=== PATIENT | female | born 1940 | race Caucasian/White ===

== ENCOUNTER 2016-10-27 15:16 | Inpatient (IN) | payer MEDICARE, OTHER ==
--- NOTE | 2016-10-23 11:58 | MH ---
cc: JUAN CARLOSCHERIESULEMAN DATE OF ADMISSION: 11/08/2016 ADMITTING DIAGNOSIS Osteoarthritis of the left knee, varus deformity left knee, pain left knee. HISTORY OF PRESENT ILLNESS The patient is a 76-year-old white female who has experienced pain in her left knee of greater than nine months duration. She had noted the onset of her symptoms as related to routine yard work activity without any actual injury occurring directly to the knee. She was experiencing an aching sensation that tended to wax and wane in nature without significant swelling being associated, but noting an occasional grinding-like discomfort. She had been taking Aleve for pain management and later presented to the undersigned physician in March of this past year at which time x-ray studies of her left knee demonstrated obvious degenerative changes with [id number] apposition about the medial compartment associated with a varus deformity of at least 10 degrees magnitude. Findings and treatment options were reviewed with the patient at that time. She was treated with an intraarticular steroid injection and followed on an outpatient basis thereafter. She continued to experience pain about the knee that did interfere with her daily routine and was feeling that she was approaching a point in time where she may need to consider a more definitive course of treatment. When seen in follow-up disposition in June of this past year per patient request she did receive a repeat steroid injection to her knee for additional pain management. Unfortunately, she was unable to appreciate any long-term benefit and returned to the office more recently expressing her desire to proceed with a more definitive course of treatment. Current x-ray studies revealed severe degenerative changes with [id number] apposition throughout the medial compartment associated with a varus deformity of almost 15 degrees magnitude. The involvement of total knee arthroplasty was outlined in detail for which emphasis was made regarding the fact that the decision to proceed with surgery would be left entirely to the patient's discretion. She readily admitted that she felt she had reached that point in time where she was ready to consider such treatment and in compliance with her wishes she is currently being admitted in order that the above be accomplished. PAST MEDICAL HISTORY Her past medical history, hospitalizations and surgeries have included: 1. Acromioplasty of the right shoulder with mini open rotator cuff repair. 2. Partial thyroidectomy. 3. Tonsillectomy. 4. Arthroscopic surgery of the knees bilaterally. 5. Tubal ligation. 6. Correction of a deviated nasal septum. 7. Upper endoscopy and colonoscopy. Her medical illnesses include: 1. Elevated cholesterol. 2. Hypothyroidism. 3. Acid reflux. MEDICATIONS Current medications: 1. Lipitor 10 mg daily. 2. Synthroid 75 mcg daily. 3. Prevacid 15 mg p.r.n. 4. Multivitamin tablet daily. ALLERGIES The patient denies any known drug allergies. REVIEW OF SYSTEMS She does wear glasses. Reports a history of migraine headaches and dizziness. Diminished auditory acuity for which hearing aids are utilized, primarily on the left side. No tinnitus. No bleeding gums or dysphagia. Occasional sinus congestion. No epistaxis. No history of pneumonia or tuberculosis. No angina or heart disease. Appetite is good. Bowel movements regular. No hepatitis, gallbladder disease, ulcers or hemorrhoids. There is a history of a hiatal hernia. No urinary tract infection. History of kidney stones with spontaneous passage. No fractures. No psychiatric illness. Her remaining review of systems is unremarkable and noncontributory. FAMILY HISTORY The patient has been at least 34 years. Her is 78 years of age, indicated to be in good health. Three daughters and one son indicated to be in good health. One daughter has a history of ocular cancer for which she did undergo enucleation treatment. Family history is otherwise unremarkable for diabetes, hypertension, heart disease, liver disease or kidney disease. SOCIAL HISTORY The patient completed a high school education. She denies active use of tobacco and ethanol. PHYSICAL EXAMINATION Height 5 feet 3 inches, weight 172 pounds. GENERAL: An alert, oriented and responsive 76-year-old white female sitting quietly upon the examination table with no apparent distress. HEAD, EYES, EARS, NOSE, AND THROAT: Pupils are equal, round and reactive to light. Extraocular movements full. Sclera clear. External nares clear. External auditory canals clear. Dental intact. Mucous membranes pink and moist. Pharynx clear. NECK: Supple. There is slight limitation in mobility at the extreme of motion indicated to be chronic in nature. Carotid pulse bilaterally. Trachea midline. Thyroid without enlargement. LUNGS: Clear to auscultation and percussion. No CVA tenderness. No discomfort throughout the dorsolumbar spine. HEART: Regular rhythm. No murmur or gallop. ABDOMEN: Soft, nontender. Bowel sounds present. PELVIC: Per primary care physician. EXTREMITIES: Left Knee: No swelling or effusion. Apprehension and compression sign are negative. There is no appreciable collateral ligamentous instability. Zero to 105 degree range of motion with discomfort at the extreme of mobility and associated crepitation being present. No collateral ligamentous laxity. Rosalba test and drawer sign negative. Pivot shift and Autumn sign positive for medial compartment pain. Straight-leg raising unremarkable at 80 degrees. Mild antalgic gait. NEUROLOGIC: Cranial nerves II through XII grossly intact excluding diminished auditory acuity on the left side. IMPRESSION Primary osteoarthritis of the left knee, varus deformity left knee, pain left knee. PLAN Left total knee arthroplasty. The nature of the planned surgical procedure, the potential complications and risks associated, the expectations of surgery and the consent form were thoroughly reviewed with the patient prior to her admission to the hospital. Josselyn has indicated her full understanding regarding all of the above and given consent to proceed with treatment as outlined. Medical evaluation and clearance for surgery will be completed by her primary care physician, Dr. Alla Prasad. Suleman Dugan MD NBS/BT /11:26 AM /11:42 AM
[~2016-10-27] VITALS: Ht 160 cm; Wt 71.8 kg
[2016-10-31] MEDS ORDERED: PREV30CA11 PO (13:13)
[2016-10-31] MEDS ORDERED: MULT1TAB84 PO (13:13)
[2016-10-31] MEDS ORDERED: LEVO.075 PO (13:13)
[2016-10-31] MEDS ORDERED: ATOR10TA15 PO (13:13)
[2016-11-08 00:13] VITALS: BP 156/89; PULSE 104; RESP 19; TEMP 98.2; O2SAT 98
[2016-11-08] MEDS: CHLORHEXIDINE GLUCONATE 4% SOLN 120 ML BTL TOP SCH (05:45)
[2016-11-08] MEDS ORDERED: LACTATED RINGER'S 1000 ML IV SCH (05:45)
[2016-11-08] MEDS ORDERED: SODIUM CHLORID 0.9% 500 ML IV SCH (05:45)
[2016-11-08] MEDS ORDERED: METOPROLOL TARTRATE 25 MG TAB PO PRN (05:45)
[2016-11-08] MEDS ORDERED: ceFAZolin 2 GM PREMIX 50 ML IV SCH (05:45)
[2016-11-08] MEDS ORDERED: INSULIN HUMAN REGULAR 1,000 UNITS/10 ML VIAL SQ PRN (05:45)
[2016-11-08] MEDS ORDERED: TRANEXAMIC ACID 1 GM PRIOR TO PROCEDURE IV SCH ×2 (05:45)
[2016-11-08] MEDS: POVIDONE IODINE 7.5% SCRUB 118 ML BOTTLE TOP SCH (05:45)
[2016-11-08 06:08] VITALS: BP 126/69; PULSE 78; RESP 16; TEMP 98.2; O2SAT 98
[2016-11-08 06:34] VITALS: PULSE 91
[2016-11-08] MEDS ORDERED: FAMOTIDINE 20 MG/2 ML VIAL ONE (06:40)
[2016-11-08] MEDS ORDERED: MIDAZOLAM HCL 5 MG/5 ML VIAL ONE (06:40)
[2016-11-08] MEDS ORDERED: ceFAZolin INJ 1,000 MG VIAL ONE (07:01)
[2016-11-08] MEDS ORDERED: TRANEXAMIC ACID 1 GM POST-OP IV SCH ×2 (09:00)
[2016-11-08] MEDS ORDERED: PROMETHAZINE INJ 25 MG/ML VIAL IM PRN (09:45)
[2016-11-08] MEDS ORDERED: fentaNYL CITRATE 250 MCG/5 ML AMP ONE (09:45)
[2016-11-08] MEDS ORDERED: HYDROmorphone HCL PF 1 MG/ML VIAL IV PRN (09:45)
[2016-11-08] MEDS ORDERED: MISCELLANEOUS PHARMACY INFORMATION XX ONE (09:45)
[2016-11-08] MEDS ORDERED: SODIUM CHLORIDE 0.9% FLUSH 5 ML FLUSH IVF PRN (09:45)
[2016-11-08] MEDS ORDERED: diphenhydrAMINE HCL 25 MG CAP PO PRN (09:45)
[2016-11-08] MEDS ORDERED: Post-op Orders (for Pharmacy) MISC XX ONE (09:45)
[2016-11-08] MEDS ORDERED: NALOXONE HCL 0.4 MG/ML AMP IV PRN (09:45)
[2016-11-08] MEDS ORDERED: BISACODYL 10 MG SUPP PR PRN (09:45)
[2016-11-08] MEDS ORDERED: ACETAMINOPHEN 325 MG TAB PO PRN (09:45)
[2016-11-08] MEDS ORDERED: ONDANSETRON HCL 4 MG/2 ML VIAL IVP PRN (09:45)
[2016-11-08] MEDS ORDERED: ZOLPIDEM TARTRATE 5 MG TAB PO PRN (09:45)
[2016-11-08] MEDS ORDERED: DOCUSATE SODIUM 100 MG CAP PO PRN (09:45)
[2016-11-08] MEDS ORDERED: MORPHINE SULFATE 30 MG/30 ML PCA IV SCH (09:45)
[2016-11-08] MEDS ORDERED: TRANEXAMIC ACID INJ 1,000 MG in SODIUM CHLORIDE 0.9% INJ 100 ML IV SCH (09:45)
[2016-11-08] MEDS ORDERED: ACETAMINOPHEN/HYDROcodone 325 MG/5 MG TAB PO PRN (09:45)
[2016-11-08] MEDS ORDERED: *morphine SULFATE 8 MG/ML PERIprocedure ONLY ONE ×2 (09:52→10:14)
--- NOTE | 2016-11-08 10:14 | MP ---
cc: SULEMAN DUGAN DATE OF SURGERY 11/08/2016 PREOPERATIVE DIAGNOSIS Osteoarthritis of the left knee, varus deformity left knee and pain of the left knee. POSTOPERATIVE DIAGNOSIS Osteoarthritis of the left knee, varus deformity left knee and pain of the left knee. PROCEDURE Left total knee arthroplasty. SURGEON Suleman Dugan MD ANESTHESIA General endotracheal INDICATIONS A 76-year-old white female with a nine-month history of progressive left knee pain. She had noted the gradual onset of her symptoms as related to yard work activities without any actual injury of the knee occurring. She experienced an aching sensation that tended to wax and wane in nature without significant swelling being associated. She had been taking Aleve for pain management and later presented to the undersigned physician in March of this past year at which time x-ray studies of her left knee demonstrated obvious degenerative changes with ugxx-bn-[id number] apposition about the medial compartment associated with a varus deformity of at least 10 degrees magnitude. Findings and treatment options were reviewed with the patient at that time. She did receive an intra-articular steroid injection and was followed on an outpatient basis thereafter. She continued to experience pain about the knee that did interfere with her daily routine for which she felt she was approaching a point in time where she may need to consider a more definitive course of treatment. When seen in follow-up disposition in June of this past year, she did request a repeat steroid injection for additional pain management. Unfortunately, she was unable to appreciate any long-term benefit and returned to the office more recently expressing her desire to proceed with a more definitive course of treatment. Current x-ray studies revealed severe degenerative changes with [id number] apposition about the medial compartment associated with a varus deformity of almost 15 degrees magnitude. The involvement of the total knee arthroplasty was outlined in detail with emphasis being made that the decision to proceed with surgery would be left entirely to the patient's discretion. She readily admitted that she had reached that point in time where she was ready to consider such treatment and in compliance with her wishes, she was currently scheduled for admission in order that the above be accomplished. FORMAT Following the induction of satisfactory general anesthesia by endotracheal intubation as completed per the department of anesthesia, a tourniquet was established around the proximal portion of the left lower extremity. The extremity proper was isolated with a U-drape thereafter being prepped with Betadine solution and draped into a sterile field in the routine manner. Prior to initiation of the actual procedure, the standard time-out protocol was completed. All parameters were appropriately addressed and confirmed by operating room personnel. The extremity was elevated for approximately one minute and the tourniquet thus inflated to 250 mmHg pressure. A sharp skin incision was initiated midline over the anterior aspect of the knee and developed through underlying subcutaneous tissue with hemostasis maintained by electrocautery. By deepening dissection, the anterior capsule was exposed. A medial capsulotomy completed and the patella subluxed in a lateral orientation. Examination of the joint space revealed severe degenerative changes throughout the medial compartment with complete erosion of articular cartilage and underlying subchondral bone exposed especially about the femoral condyle. Degenerative changes extended into the intercondylar region. There was absence of the anterior cruciate ligament. The articular surface of the patella was resected with power saw. The three holed guide was utilized for establishing post holes. Medial and lateral meniscus structures were sharply excised. A centering hole was placed into the distal aspect of the femur allowing positioning of the intramedullary guide. The distal femoral cutting jig was attached and the distal femur resected. AP measurement noted 62.5 mm sizing to be appropriate. The matching cutting block was positioned. Anterior, posterior and chamfer cuts were completed. The tibial plateau was thereafter subluxed in an anterior orientation allowing positioning of the extramedullary guide. The tibial plateau was resected and measured with 67 mm sizing determined to be appropriate. A trial reduction followed utilizing a 62.5 mm anatomic femoral component, a 67 mm tibial base with both 10 and 12 mm bearing inserts trialed, the 12-mm thickness was determined to be the more favorable fit. The knee was readily brought to full extension. There was no laxity to varus valgus stress at both zero and 90 degrees flexed posture. Orientation was confirmed as being appropriate with measurement of the pelvic guide through the mechanical axis of the knee. A trial reduction followed utilizing a 31 mm standard patellar button. Once again, good tracking was demonstrated with no tendency toward subluxation. All trial components being removed, the remaining portion of the proximal tibia was prepared for insertion of the permanent component. The joint space was thoroughly lavaged with pulsating antibiotic solution, hemostasis being maintained by electrocautery. An autogenous bone plug was inserted into the distal femoral guide hole and thereafter a preparation of cobalt bone cement was utilized in inserting knee components in a sequential fashion which included a 67 mm fixed cruciate tibial plate to which a 12 Vanguard tibial bearing insert was secured with locking ordonez. The 62.5 mm Vanguard femoral component was firmly seated onto the distal femur, excess cement being removed, the knee was brought to full extension and thereafter the 31 mm standard three post patellar button was attached and maintained in place with patellar clamp while cement hardening was completed. Final range of motion assessment noted good tracking and stability throughout the knee. Irrigation was repeated with hemostasis maintained. Autovac drain tubes were inserted through superior stab wounds. The capsule was repaired with 0 Vicryl suture. The remaining portion of the wound was closed in layers in the routine manner, skin margins being reapproximated with a running subcuticular 3-0 Vicryl suture over which Steri-Strips were applied. Xeroform gauze and a bulky dry sterile dressing were placed. The tourniquet was deflated after 45 minutes of tourniquet time. The extremity being supported in a canvas knee splint, anesthesia was discontinued and the patient thus transferred to a hospital bed returned to the recovery room in satisfactory condition having tolerated her operative procedure well. Estimated blood loss was approximately 50-75 cc as determined per anesthesia. All implants were of the [employer] manufacture. MD YAA Sánchez/HESHAM /9:34 AM /10:02 AM
[2016-11-08] MEDS ORDERED: DO NOT ADM ANY ANTICOAGULANT DRUGS XX PRN (10:15)
--- NOTE | 2016-11-08 10:24 | RADRPT ---
EXAM DATE/TIME: 11/08/2016 09:49 [facility] COMPARISON: No previous studies available for comparison. INDICATIONS : Post op left knee surgery. MEDICAL HISTORY : None. SURGICAL HISTORY : None. ENCOUNTER: Initial ACUITY: 1 day PAIN SCORE: 8/10 LOCATION: Left Knee. FINDINGS: Total knee arthroplasty is present. Hardware is intact. Alignment is anatomic. Surgical drains are pr esent. CONCLUSION: Satisfactory appearance post left TKA Demar Lerma MD on November 08, 2016 at 10:22 Board Certified Radiologist. This report was verified electronically.
[2016-11-08] MEDS: DEXT 5%-NACL 0.45% 1000 ML INJ 1,000 ML IV SCH ×2 (10:30→17:41)
[2016-11-08] MEDS ORDERED: *ONDANSETRON 4 MG VIAL PERIprocedural Use ONLY ONE (10:52)
[2016-11-08] MEDS ORDERED: *PROMETHAZINE 25 MG/ML VIAL PERIprocedural use ONLY ONE (10:52)
[2016-11-08] MEDS ORDERED: PROPOFOL 200 MG/20 ML AMP IV ONE (12:00)
[2016-11-08] MEDS ORDERED: ONDANSETRON HCL 4 MG/2 ML VIAL IV PUSH ONE (12:00)
[2016-11-08] MEDS ORDERED: NEOSTIGMINE 3 MG/3 ML SYR IV ONE (12:00)
[2016-11-08] MEDS ORDERED: PHENYLEPH/NS 1000 MCG/10 ML SYR IV ONE (12:00)
[2016-11-08] MEDS ORDERED: ePHEDrine/NS 50 MG/5 ML SYR IV ONE (12:00)
[2016-11-08] MEDS ORDERED: LACTATED RINGER'S 1000 ML INJ 1,000 ML IV ONE (12:00)
[2016-11-08 12:50] VITALS: BP 117/72; PULSE 96; RESP 16; O2SAT 99
[2016-11-08] MEDS: PCA - TOTAL MG MORPHINE DELIVERED PER SHIFT SCH ×2 (14:00→22:00)
[2016-11-08 16:00] VITALS: BP 134/69; PULSE 92; RESP 16; TEMP 97.7; O2SAT 98
--- NOTE | 2016-11-08 17:40 | PD.CONS ---
HPI Service [facility] Consult Requested By Dr. Dugan Reason for Consult Medical management Primary Care Physician Alla Prasad MD Diagnoses: History of Present Illness The patient is a 76-year-old female with a past medical history of hypothyroidism who is presenting to the hospital for elective left total knee replacement. The patient says that over the past year her left knee has been more and more painful and bothersome. She has been following up with orthopedic surgery and has had steroid injections which initially worked but started to work less and less effectively. The patient says that her ambulation is hindered and she is relying on her right leg and because of that her right leg has started to hurt her as well. The patient says that she has not ambulated with a cane or a walker but she is cautious about ambulating and is worried she will fall. She tries to avoid stairs. Because the patient was so apprehensive about her gait she decided to go ahead and get the knee replacement. She tolerated the procedure well and she currently is not experiencing much pain. She says she does not have much of an appetite. She denies any other active medical issues at this time. Discussed with nursing. Review of Systems Constitutional: COMPLAINS OF: Change in appetite Cardiovascular: COMPLAINS OF: Lower Extremity Edema Musculoskeletal: COMPLAINS OF: Joint pain, Muscle aches, Stiffness, Joint Swelling Neurologic: COMPLAINS OF: Abnormal gait, Poor Balance Past Family Social History Allergies: Coded Allergies: No Known Allergies (Verified , 11/08/16) Past Medical History Hypothyroidism following thyroid surgery Osteoarthritis Hyperlipidemia GERD Bilateral foot surgery Right rotator cuff surgery Active Ordered Medications Current Medications Medications (Trade) Dose Ordered Sig/Chantal Route Start Time Stop Time Status Last Admin (Betadine 7.5% Scrub) 1 applic ONCE TOP 11/08/16 05:45 11/11/16 05:44 11/08/16 05:45 Chlorhexidine Gluconate 1 applic 1 applic ONCE TOP 11/08/16 05:45 11/11/16 05:44 Tranexamic Acid 1000 mg/Sodium Chloride 110 ml @ 220 mls/hr ONCE IV 11/08/16 05:45 11/08/16 21:00 11/08/16 06:28 (Cyklokapron Inj/ NS Inj) 110 ml @ 220 mls/hr ONCE IV 11/08/16 09:00 11/08/16 21:00 11/08/16 09:30 (NS Flush) 2 ml UNSCH PRN IVF 11/08/16 09:45 IV Flush 2 ml 2 ml BID IVF 11/08/16 21:00 (Ancef Inj/NS Inj) 100 ml @ 200 mls/hr Q6H IV 11/08/16 12:00 11/09/16 00:29 11/08/16 12:00 (Xarelto) 10 mg Q24H PO 11/09/16 09:00 (Dilaudid Pf Inj) 1 mg Q3H PRN IV 11/08/16 09:45 (Crawford 5-325 Mg) 1 tab Q4H PRN PO 11/08/16 09:45 (Crawford 5-325 Mg) 2 tab Q4H PRN PO 11/08/16 09:45 (Tylenol) 650 mg Q6H PRN PO 11/08/16 09:45 (Zofran Inj) 4 mg Q6H PRN IVP 11/08/16 09:45 (Ambien) 5 mg HS PRN PO 11/08/16 09:45 (Dulcolax Supp) 10 mg DAILY PRN TN 11/08/16 09:45 (Milk Of Magnesia Liq) 30 ml DAILY PRN PO 11/08/16 09:45 (Narcan Inj) 0.4 mg UNSCH PRN IV 11/08/16 09:45 11/10/16 09:44 (Benadryl) 25 mg Q6H PRN PO 11/08/16 09:45 11/10/16 09:44 (Morphine 1 Mg/ ml SOFA BACK UPHOLSTERER) 30 mg UNSCH IV 11/08/16 09:45 11/10/16 09:44 11/08/16 10:32 SOFA BACK UPHOLSTERER Dosage Infused (Pha) 1 1 Q8HR .XX 11/08/16 14:00 11/10/16 13:59 (D5W-1/2 NS 1000 ml Inj) 1,000 ml @ 125 mls/hr Q8H IV 11/08/16 09:41 11/08/16 10:30 (Phenergan Inj) 25 mg Q6H PRN IM 11/08/16 09:45 Miscellaneous Information ALL NURSING DEPARTME... UNSCH PRN XX 11/08/16 10:15 11/09/16 10:14 (Colace) 100 mg BID PO 11/08/16 21:00 UNV (Senokot) 17.2 mg DAILY PO 11/08/16 17:15 UNV (Lipitor) 10 mg HS PO 11/08/16 21:00 UNV (Synthroid) 75 mcg DAILY PO 11/09/16 09:00 UNV Family History Her mother from the measles. Social History The patient does not smoke or drink. Physical Exam Vital Signs Vital Signs Date Time Temp Pulse Resp B/P Pulse Ox O2 Delivery O2 Flow Rate FiO2 11/08/16 12:50 96 16 117/72 99 11/08/16 12:10 74 14 117/67 98 Nasal Cannula 3 11/08/16 10:45 97.4 78 15 137/76 99 Nasal Cannula 3 11/08/16 10:37 15 11/08/16 10:32 15 11/08/16 10:30 80 14 139/78 98 Nasal Cannula 3 11/08/16 10:19 15 11/08/16 10:15 83 14 146/81 96 Nasal Cannula 3 11/08/16 10:00 85 13 147/83 95 Nasal Cannula 3 11/08/16 09:57 15 11/08/16 09:45 88 12 150/84 100 Nasal Cannula 4 11/08/16 09:43 97.6 83 8 142/81 98 Nasal Cannula 4 11/08/16 07:00 69 14 128/79 99 11/08/16 06:45 73 14 169/92 99 11/08/16 06:34 98.3 91 16 159/93 99 11/08/16 06:34 99 Nasal Cannula 3 11/08/16 06:34 91 11/08/16 06:08 98.2 78 16 126/69 98 Physical Exam GENERAL: This is a well-nourished, well-developed patient, in no apparent distress. SKIN: No rashes, ecchymoses or lesions. Cool and dry. HEAD: Atraumatic. Normocephalic. No temporal or scalp tenderness. EYES: Pupils equal round and reactive. Extraocular motions intact. No scleral icterus. No injection or drainage. ENT: Nose without bleeding, purulent drainage or septal hematoma. Throat without erythema, tonsillar hypertrophy or exudate. Uvula midline. Airway patent. NECK: Trachea midline. No JVD or lymphadenopathy. Supple, nontender, no meningeal signs. CARDIOVASCULAR: Regular rate and rhythm without murmurs, gallops, or rubs. RESPIRATORY: Clear to auscultation. Breath sounds equal bilaterally. No wheezes , rales, or rhonchi. GASTROINTESTINAL: Abdomen soft, non-tender, nondistended. No hepato-splenomegaly , or palpable masses. No guarding. MUSCULOSKELETAL: Right leg is bandaged. Drain in place. Nontender to palpation. NEUROLOGICAL: Awake and alert. Cranial nerves II through XII intact. Motor and sensory grossly within normal limits. Five out of 5 muscle strength in all muscle groups. Normal speech. PSYCH: Mood and affect appropriate. Laboratory Laboratory Tests Test 11/08/16 06:05 Blood Type A POSITIVE Antibody Screen NEGATIVE Blood Bank Comment Imaging Last Impressions Knee X-Ray 11/08/16 0941 Signed Impressions: Service Date/Time: Tuesday, November 08, 2016 09:49 - CONCLUSION: Satisfactory appearance post left TKA Demar Lerma MD Assessment and Plan Assessment and Plan Severe osteoarthritis The patient is status post left knee total replacement 11/08/16. Pain is currently controlled. - Pain control with a bowel regimen. - Wound care and anticoagulation per orthopedic surgery. - Incentive spirometry. - Physical therapy. - check basic labs in the AM. Hypothyroidism The patient is status post thyroid surgery when she was in her 20s. - Continue levothyroxine. GERD S/p EGD as an outpt, reportedly normal. - continue PPI. PPx: Per surgery. Discussed Condition With Patient, patient's family, nurse. Rj Sena DO Nov 08, 2016 17:40
[2016-11-08] MEDS: SENNOSIDES 8.6 MG TAB PO SCH (18:00)
[2016-11-08 20:30] VITALS: BP 130/64; PULSE 84; RESP 17; TEMP 97.8; O2SAT 96
[2016-11-08] MEDS: SODIUM CHLORIDE 0.9% FLUSH 5 ML FLUSH IVF SCH (21:00)
[2016-11-09] MEDS: ATORVASTATIN 10 MG TAB PO SCH ×2 (00:01→20:23)
[2016-11-09] MEDS: DOCUSATE SODIUM 100 MG CAP PO SCH ×3 (00:01→20:23)
[2016-11-09 04:20] VITALS: BP 125/56; PULSE 86; RESP 17; TEMP 97.4; O2SAT 97
[2016-11-09] MEDS: POVIDONE IODINE 7.5% SCRUB 118 ML BOTTLE TOP SCH (05:45)
[2016-11-09] MEDS: CHLORHEXIDINE GLUCONATE 4% SOLN 120 ML BTL TOP SCH (05:45)
[2016-11-09] MEDS: PCA - TOTAL MG MORPHINE DELIVERED PER SHIFT SCH ×2 (06:00→14:00)
[2016-11-09] MEDS ORDERED: HYDR-3516 PO (06:12)
[2016-11-09] MEDS ORDERED: ASPI325T PO (06:12)
--- NOTE | 2016-11-09 06:14 | HHI.FF ---
Face to Face Verification Diagnosis: (1) DJD (degenerative joint disease) of knee Physical Therapy Gait training Knee: Total knee, Protocol: Left, Full weight bearing Left LE Weight Bearing: WB as tolerated Left LE Range of Motion: Active ROM Nursing Dressing Changes: Daily dressing change I have seen patient Josselyn Atwood on 11/09/16. My clinical findings support the need for the requested home health care services because: Deconditioned w/ increased weakness Limited ability to care for self High risk of falls I certify that my clinical findings support that this patient is homebound because: Post-op weakness Unsteady gait/balance Unsafe to leave home unassisted Piyush Dugan MD Nov 09, 2016 06:14
[2016-11-09] MEDS ORDERED: WALKER WHEELS/F1 MIS (06:16)
[2016-11-09] MEDS: LEVOTHYROXINE SODIUM 75 MCG TAB PO SCH (06:23)
[2016-11-09 07:22] LABS: MEAN CELL VOLUME 90.4 FL (80.0-100.0); MEAN CORPUSCULAR HEMOGLOBIN 30.8 PG (27.0-34.0); PLATELET COUNT 212 TH/MM3 (150-450); RED BLOOD COUNT 4.21 MIL/MM3 (4.00-5.30); RED CELL DISTRIBUTION WIDTH 12.9 % (11.6-17.2); REVIEW FLAG FINAL; WHITE BLOOD COUNT 11.3 TH/MM3 (4.0-11.0)
[2016-11-09 07:44] LABS: BICARBONATE 27.2 MEQ/L (21.0-32.0); MAGNESIUM 1.9 MG/DL (1.5-2.5); POTASSIUM 3.6 MEQ/L (3.5-5.1)
[2016-11-09 08:00] VITALS: BP 142/74; PULSE 90; RESP 20; TEMP 98; O2SAT 98
[2016-11-09] MEDS: SENNOSIDES 8.6 MG TAB PO SCH (08:00)
[2016-11-09] MEDS: RIVAROXABAN 10 MG TAB PO SCH (08:00)
[2016-11-09] MEDS: DEXT 5%-NACL 0.45% 1000 ML INJ 1,000 ML IV SCH ×2 (08:01→17:41)
[2016-11-09] MEDS: SODIUM CHLORIDE 0.9% FLUSH 5 ML FLUSH IVF SCH ×2 (08:01→20:26)
[2016-11-09 12:00] VITALS: BP 116/66; PULSE 85; RESP 16; TEMP 98.1; O2SAT 92
[2016-11-09] MEDS: ACETAMINOPHEN/HYDROcodone 325 MG/5 MG TAB PO PRN ×2 (14:39→18:48)
[2016-11-09 16:00] VITALS: BP 118/61; PULSE 90; RESP 20; TEMP 97.6; O2SAT 94
[2016-11-09] MEDS: MAGNESIUM HYDROXIDE SUSP 30 ML CUP PO PRN (20:24)
[2016-11-09 21:10] VITALS: BP 107/54; PULSE 97; RESP 17; TEMP 97.8; O2SAT 95
[2016-11-10] VITALS (7 sets, daily range): BP systolic 93–125; BP diastolic 55–79; PULSE 89–95; RESP 16–20; TEMP 97.2–98.8; O2SAT 92–95
[2016-11-10] MEDS: LEVOTHYROXINE SODIUM 75 MCG TAB PO SCH (04:13)
[2016-11-10] MEDS: ACETAMINOPHEN/HYDROcodone 325 MG/5 MG TAB PO PRN ×4 (04:14→20:22)
[2016-11-10] MEDS: POVIDONE IODINE 7.5% SCRUB 118 ML BOTTLE TOP SCH (05:45)
[2016-11-10] MEDS: CHLORHEXIDINE GLUCONATE 4% SOLN 120 ML BTL TOP SCH (05:45)
[2016-11-10] MEDS: PCA - TOTAL MG MORPHINE DELIVERED PER SHIFT SCH (06:00)
[2016-11-10] MEDS: SENNOSIDES 8.6 MG TAB PO SCH (09:29)
[2016-11-10] MEDS: DEXT 5%-NACL 0.45% 1000 ML INJ 1,000 ML IV SCH ×2 (09:30→16:25)
[2016-11-10] MEDS: DOCUSATE SODIUM 100 MG CAP PO SCH ×2 (09:30→20:16)
[2016-11-10] MEDS: SODIUM CHLORIDE 0.9% FLUSH 5 ML FLUSH IVF SCH ×2 (09:30→20:16)
[2016-11-10] MEDS: RIVAROXABAN 10 MG TAB PO SCH (09:30)
--- NOTE | 2016-11-10 15:08 | MD ---
cc: SULEMAN DUGAN ROXY ADMISSION DATE: 11/08/2016 DISCHARGE DATE: 11/11/2016 [place] Visit Search.Discharge Date ADMITTING DIAGNOSIS Osteoarthritis of the left knee, varus deformity of the left knee, pain of the left knee. DISCHARGE DIAGNOSIS Osteoarthritis of the left knee, varus deformity of the left knee, pain of the left knee. HISTORY The patient is a 76-year-old white female with at least a nine-month history of pain involving her left knee. She had noted the onset of her symptoms as related to yard work activity without an actual injury of her knee occurring. She experienced an aching sensation that tended to wax and wane in nature without significant swelling being associated with an occasional grinding-like discomfort. She had been taking Aleve for pain management and later presented to the undersigned physician in March of this past year at which time x-ray studies demonstrated obvious degenerative changes with [id number] apposition about the medial compartment associated with a varus deformity of at least 10 degrees magnitude. Findings and treatment options were reviewed with the patient at that time. She was treated with an intraarticular steroid injection and followed on an outpatient basis thereafter. She remained symptomatic with pain about her knee that interfered with her daily routine feeling that she was approaching a point in time where she may need to consider more definitive course of treatment. When seen in follow-up disposition in June of this past year the patient requested a repeat injection in the hope that it might give her additional relief. Unfortunately, she was unable to note any long-term benefit and returned to the office more recently expressing her desire to proceed with a more definitive course of treatment. Current x-ray studies reveal severe degenerative changes with [id number] apposition about the medial compartment associated with a varus deformity of almost 15 degrees magnitude. The involvement of total knee arthroplasty was outlined in detail with emphasis being made that the decision to proceed with surgery would be left entirely to the patient's discretion. She readily admitted that she felt she had reached that point in time where she was ready to consider such treatment and in compliance with her wishes she was currently admitted in order that total knee arthroplasty be accomplished. Her physical examination at the time of admission revealed no swelling or effusion about the left knee. Apprehension and compression sign were negative. No collateral ligamentous laxity. Zero to 105 degrees range of motion with pain at the extreme of mobility and associated crepitation. No collateral ligamentous laxity. Rosalba test and drawer sign negative. Pivot shift and Autumn sign positive for medial compartment pain. Straight-leg raising unremarkable at 80 degrees. Antalgic gait. HOSPITAL COURSE Prior to admission to the hospital the patient underwent medical evaluation and clearance for surgery as completed by her primary care physician, Dr. Alla Prasad. She was taken to the operating room on 08 November 2016, and on that date underwent a left total knee arthroplasty completed in an uncomplicated manner. The patient was noted to have tolerated her operative procedure well and her postoperative course was stable thereafter. Hemoglobin and hematocrit assessment postoperatively was 13 and 38 respectively. The patient was progressively mobilized under the supervision of therapy intervention, being permitted weightbearing to tolerance about the left lower extremity. Follow-up examination of her surgical wound noted it to be intact, healing favorably, no evidence of infection. DVT prophylaxis was initiated. Tank Storage Supervisor were consulted to assist with discharge planning. The patient indicated her desire for rehab placement. Plans were finalized in this regard and pending medical clearance she was scheduled for transfer on the third postoperative day at which time she was noted to be making favorable progress with regards to her rehab program. She was scheduled to be seen in office follow-up in approximately 4 weeks. Her condition at the time of discharge stable. Prognosis favorable. MEDICATIONS Discharge medications include: 1. Hydrocodone 5/325, #60. 2. Aspirin 325 mg, one tablet twice daily for 3 weeks, #30. uSleman Dugan MD NBS/BT /6:36 AM /2:58 PM
[2016-11-10] MEDS ORDERED: CALCIUM CARBONATE 500 MG CHEWABLE TAB PO PRN (16:45)
[2016-11-10] MEDS: ATORVASTATIN 10 MG TAB PO SCH (20:16)
[2016-11-10] MEDS: MAGNESIUM HYDROXIDE SUSP 30 ML CUP PO PRN (20:16)
[2016-11-11] VITALS: BP 104/62; PULSE 91; RESP 16; TEMP 98.3; O2SAT 93
[2016-11-11] MEDS: DEXT 5%-NACL 0.45% 1000 ML INJ 1,000 ML IV SCH ×2 (01:41→09:41)
[2016-11-11] MEDS: ACETAMINOPHEN/HYDROcodone 325 MG/5 MG TAB PO PRN (04:27)
[2016-11-11] MEDS: LEVOTHYROXINE SODIUM 75 MCG TAB PO SCH (04:27)
[2016-11-11 08:00] VITALS: BP 109/56; PULSE 79; RESP 16; TEMP 97.6; O2SAT 94
[2016-11-11] MEDS: RIVAROXABAN 10 MG TAB PO SCH (08:24)
[2016-11-11] MEDS: SENNOSIDES 8.6 MG TAB PO SCH (08:24)
[2016-11-11] MEDS: DOCUSATE SODIUM 100 MG CAP PO SCH (08:25)
[2016-11-11] MEDS: SODIUM CHLORIDE 0.9% FLUSH 5 ML FLUSH IVF SCH (08:25)
== END 2016-11-11 11:57 | DRG 470 ==
LOC: HSDI 11-08 05:22 → N06A 11-08 12:38
PROVIDERS: ADMIT Orthopaedic Surgery; ATTEND Orthopaedic Surgery
PROC: 3E0T3BZ Introduction of Anesthetic Agent into Peripheral Nerves and Plexi, Percutaneous Approach (ICD-10-PCS; 2016-11-08)
PROC: 0SRD0J9 Replacement of Left Knee Joint with Synthetic Substitute, Cemented, Open Approach (ICD-10-PCS; principal; 2016-11-08 07:17)
DX: M17.12 Unilateral primary osteoarthritis, left knee (principal); M21.162 Varus deformity, not elsewhere classified, left knee; E89.0 Postprocedural hypothyroidism; E78.00 Pure hypercholesterolemia, unspecified; K21.9 Gastro-esophageal reflux disease without esophagitis; H91.90 Unspecified hearing loss, unspecified ear
CPT/HCPCS: 73560; 80048; 83735; 85027; 86850; 86900; 86901; 88305; 88311; 94150; C1776; J0690; J2250; J2270; J2370; J2405; J2550; J2710; J3010; J7120; L1830

== ENCOUNTER 2017-01-10 13:27 | Emergency (ER) | payer MEDICARE, OTHER ==
[~2017-01-10] VITALS: Ht 160 cm; Wt 74.0 kg
[~2017-01-10 13:27] MED LIST: ASPI325T PO; ATOR10TA15 PO; HYDR-3516 PO; LEVO.075 PO; MULT1TAB84 PO; PREV30CA11 PO; WALKER WHEELS/F1 MIS
[2017-01-10 13:31] VITALS: BP 151/77; PULSE 86; RESP 20; TEMP 97.8; O2SAT 97
--- NOTE | 2017-01-10 14:47 | PD ---
HPI Chief Complaint: Dizziness Time Seen by Provider: 14:43 Travel History International Travel<30 days: No Contact w/Intl Traveler<30days: No Traveled to known affect area: No History of Present Illness HPI Patient 76-year-old female presenting to emergency department for evaluation of dizziness, jitteriness, gait abnormality. Patient states since her knee surgery on November 08, 2016 she's had these feelings. She states one day she can walk fine the next day she can't put 1 foot in front of the other. Patient also reports being a "emotional roller coaster". Her daughter states that she cries for no reason. Does not live alone. She has no psychiatric history. Her medical history includes hypothyroidism, hyperlipidemia, brain tumor. Patient reports her brain tumor is small. Patient denies any use of over-the- counter supplements other than a multivitamin. 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 ) Cardiovascular Problems: No High Cholesterol: Yes (TAKES LIPITOR AT HOME) Chemotherapy: No Chest Pain: No Congestive Heart Failure: No COPD: No Cerebrovascular Accident: Yes Diabetes: No Endocrine: No GERD: Yes Glaucoma: No Genitourinary: No Hepatitis: No Hiatal Hernia: Yes Hypertension: No Immune Disorder: No Kidney Stones: Yes (15 YRS AGO) Musculoskeletal: Yes (arthritis in neck and knees) Neurologic: No Psychiatric: No Reproductive: No Respiratory: No Migraines: Yes (25 YRS AGO) Radiation Therapy: No Renal Failure: No Seizures: No Sickle Cell Disease: No Sleep Apnea: No Thyroid Disease: Yes (PARTIAL THYROIDECTOMY on Synthroid) Ulcer: No ?: Not Past Surgical History Abdominal Surgery: No AICD: No Arteriovenous Shunt: No Cardiac Surgery: No Ear Surgery: No Endocrine Surgery: Yes (PARTIAL THYROIDECTOMY) Eye Surgery: No Genitourinary Surgery: No Gynecologic Surgery: Yes (tubal ligation) Insulin Pump: No Joint Replacement: No Oral Surgery: Yes (TONSILLECTOMY) Pacemaker: No Thoracic Surgery: No Social History Alcohol Use: Yes (OCCASIONAL BEER) Tobacco Use: No Substance Use: No Allergies-Medications (Allergen,Severity, Reaction): Coded Allergies: No Known Allergies (Verified , 01/10/17) Reported Meds & Prescriptions Reported Meds & Active Scripts Active Walker with Front Wheels (Device) 1 Mis Mis 1 Ea .ROUTE DIRECTED Aspirin 325 Mg Tab 325 Mg PO BID Hydrocodone-Acetaminophen 5-325 mg Tab 2 Tab PO Q4H PRN Reported Synthroid (Levothyroxine Sodium) 75 Mcg Tab 75 Mcg PO DAILY Prevacid (Lansoprazole) 30 Mg Capdr 30 Mg PO DAILY PRN Atorvastatin (Atorvastatin Calcium) 10 Mg Tab 10 Mg PO HS Multivitamin Adults (Multiple Vitamins W/ Minerals) 1 Tab 1 Tab PO DAILY Review of Systems Except as stated in HPI: all other systems reviewed are Neg General / Constitutional: No: Fever, Chills HENT: No: Headaches Cardiovascular: No: Chest Pain or Discomfort Respiratory: No: Shortness of Breath Gastrointestinal: No: Nausea, Abdominal Pain Musculoskeletal: No: Myalgias Neurologic: Positive: Dizziness, Coordination Problem Psychiatric: Positive: Anxiety Physical Exam Narrative GENERAL: Well-developed, well-nourished, alert elderly her daughter, resting comfortably in no acute distress. HEAD: Atraumatic. Normocephalic. EYES: Pupils equal and round. No scleral icterus. No injection or drainage. ENT: No nasal bleeding or discharge. Mucous membranes pink and moist. NECK: Trachea midline. No JVD. CARDIOVASCULAR: Regular rate and rhythm. No murmur appreciated. RESPIRATORY: No accessory muscle use. Clear to auscultation. Breath sounds equal bilaterally. GASTROINTESTINAL: Abdomen soft, non-tender, nondistended. Hepatic and splenic margins not palpable. MUSCULOSKELETAL: No obvious deformities. No clubbing. No cyanosis. No edema. NEUROLOGICAL: Awake and alert. No obvious cranial nerve deficits. Motor grossly within normal limits. Normal speech. PSYCHIATRIC: Appropriate mood and affect; insight and judgment normal. Data Data Last Documented VS Vital Signs Date Time Temp Pulse Resp B/P Pulse Ox O2 Delivery O2 Flow Rate FiO2 01/10/17 13:31 97.8 86 20 151/77 97 Room Air Orders Electrocardiogram (01/10/17 14:32) Complete Blood Count With Diff (01/10/17 14:32) Comprehensive Metabolic Panel (01/10/17 14:32) Creatine Kinase (Cpk) (01/10/17 14:32) Prothrombin Time / Inr (Pt) (01/10/17 14:32) Act Partial Throm Time (Ptt) (01/10/17 14:32) Troponin I (01/10/17 14:32) Thyroid Stimulating Hormone (01/10/17 14:32) Urinalysis - C+S If Indicated (01/10/17 14:32) Ct Brain W/O Iv Contrast(Rout) (01/10/17 14:32) Chest, Single Ap (01/10/17 ) Orthostatic Vital Signs (01/10/17 15:53) Magnesium (Mg) (01/10/17 15:19) Labs Laboratory Tests Test 01/10/17 01/10/17 15:19 15:25 White Blood Count 6.3 TH/MM3 Red Blood Count 4.73 MIL/MM3 Hemoglobin 14.2 GM/DL Hematocrit 42.3 % Mean Corpuscular Volume 89.5 FL Mean Corpuscular Hemoglobin 30.1 PG Mean Corpuscular Hemoglobin 33.6 % Concent Red Cell Distribution Width 13.9 % Platelet Count 250 TH/MM3 Mean Platelet Volume 8.9 FL Neutrophils (%) (Auto) 56.0 % Lymphocytes (%) (Auto) 33.3 % Monocytes (%) (Auto) 8.4 % Eosinophils (%) (Auto) 1.7 % Basophils (%) (Auto) 0.6 % Neutrophils # (Auto) 3.5 TH/MM3 Lymphocytes # (Auto) 2.1 TH/MM3 Monocytes # (Auto) 0.5 TH/MM3 Eosinophils # (Auto) 0.1 TH/MM3 Basophils # (Auto) 0.0 TH/MM3 CBC Comment DIFF FINAL Differential Comment Prothrombin Time 11.0 SEC Prothromb Time International 1.0 RATIO Ratio Activated Partial 21.7 SEC Thromboplast Time Sodium Level 141 MEQ/L Potassium Level 4.5 MEQ/L Chloride Level 106 MEQ/L Carbon Dioxide Level 25.5 MEQ/L Anion Gap 10 MEQ/L Blood Urea Nitrogen 19 MG/DL Creatinine 0.87 MG/DL Estimat Glomerular Filtration 63 ML/MIN Rate Random Glucose 92 MG/DL Calcium Level 9.5 MG/DL Magnesium Level 2.1 MG/DL Total Bilirubin 0.6 MG/DL Aspartate Amino Transf 27 U/L (AST/SGOT) Alanine Aminotransferase 21 U/L (ALT/SGPT) Alkaline Phosphatase 79 U/L Total Creatine Kinase 98 U/L Troponin I LESS THAN 0.02 NG/ML Total Protein 7.9 GM/DL Albumin 4.5 GM/DL Thyroid Stimulating Hormone 2.120 uIU/ML 3rd Gen Urine Color YELLOW Urine Turbidity HAZY Urine pH 5.5 Urine Specific [place] 1.021 Urine Protein TRACE mg/dL Urine Glucose (UA) NEG mg/dL Urine Ketones 10 mg/dL Urine Occult Blood NEG Urine Nitrite NEG Urine Bilirubin NEG Urine Urobilinogen LESS THAN 2.0 MG/DL Urine Leukocyte Esterase NEG Urine RBC 1 /hpf Urine WBC 2 /hpf Urine Squamous Epithelial 5 /hpf Cells Urine Mucus FEW /lpf Urine Yeast (Budding) RARE Microscopic Urinalysis Comment CULT NOT INDICATED MDM Medical Decision Making Medical Screen Exam Complete: Yes Emergency Medical Condition: Yes Interpretation(s) Vital Signs Date Time Temp Pulse Resp B/P Pulse Ox O2 Delivery O2 Flow Rate FiO2 01/10/17 13:31 97.8 86 20 151/77 97 Room Air Differential Diagnosis Anxiety/panic disorder versus mass versus electrolyte abnormality versus thyroid versus other Narrative Course Patient is a 76-year-old female presenting to the emergency room for evaluation of dizziness, jitteriness, gait abnormality. Patient is also personality changes including emotional lability since her surgery in November 08 2016. Labs ordered and pending to include thyroid and urinalysis. CT scan of the brain ordered to rule out mass or hemorrhage, and to determine stability of previous brain tumor. Workup initiated in triage, care of patient will be transferred to provider when medical bed is available. Mary Jane Agrawal Jan 10, 2017 14:47
--- NOTE | 2017-01-10 15:10 | RADRPT ---
EXAM DATE/TIME: 01/10/2017 14:53 [facility] COMPARISON: No previous studies available for comparison. INDICATIONS : Generalized weakness. RADIATION DOSE: 48.69 CTDIvol (mGy) MEDICAL HISTORY : Cerebrovascular disease. SURGICAL HISTORY : None. ENCOUNTER: Initial ACUITY: 1 day PAIN SCALE: 0/10 LOCATION: cranial TECHNIQUE: Multiple contiguous axial images were obtained of the head. Using automated exposure control and adj ustment of the mA and/or kV according to patient size, radiation dose was kept as low as reasonably a chievable to obtain optimal diagnostic quality images. FINDINGS: CEREBRUM: There is mild cerebral atrophy. Ventricles are normal in size. There is mild periventricular white ma tter low attenuation. No evidence of midline shift, mass lesion, hemorrhage or acute infarction. No extra-axial fluid collections are seen. POSTERIOR FOSSA: The cerebellum and brainstem are intact. The 4th ventricle is midline. The cerebellopontine angle i s unremarkable. EXTRACRANIAL: Visualized sinuses are clear. SKULL: The calvaria is intact. No evidence of skull fracture. CONCLUSION: 1. No acute intracranial abnormality is identified. 2. Chronic changes include mild cerebral atrophy and periventricular white matter low attenuation christiana racteristic of chronic microvascular ischemia. Demar Latham MD on January 10, 2017 at 15:07 Board Certified Radiologist. This report was verified electronically.
[2017-01-10 15:52] LABS: AUTOMATED NEUTROPHIL # 3.5 TH/MM3 (1.8-7.7); BASOPHIL % 0.6 % (0.0-2.0); EOSINOPHIL # 0.1 TH/MM3 (0-0.4); EOSINOPHIL % 1.7 % (0.0-4.0); HEMATOCRIT 42.3 % (35.0-46.0); HEMO FLAGS DIFF FINAL; LYMPH % 33.3 % (9.0-44.0); LYMPHOCYTE # 2.1 TH/MM3 (1.0-4.8); MEAN CELL VOLUME 89.5 FL (80.0-100.0); MEAN CORPUSCULAR HEMOGLOBIN 30.1 PG (27.0-34.0); MEAN CORPUSCULAR HGB CONC 33.6 % (32.0-36.0); MONO % 8.4 % (0.0-8.0); PLATELET COUNT 250 TH/MM3 (150-450); RED BLOOD COUNT 4.73 MIL/MM3 (4.00-5.30); RED CELL DISTRIBUTION WIDTH 13.9 % (11.6-17.2); WHITE BLOOD COUNT 6.3 TH/MM3 (4.0-11.0)
[2017-01-10 16:00] LABS: BLOOD, URINE NEG (NEG); COMMENT (UR) CULT NOT INDICATED; CULTURE IF INDICATED CULT NOT INDICATED; GLUCOSE,URINE NEG (NEG); KETONE, URINE 10 mg/dL (NEG); MUCUS URINE FEW /lpf (OCC); NITRITE,URINE NEG (NEG); PH, URINE 5.5 (5.0-8.5); SQUAMOUS EPITHELIAL CELL URINE 5 /hpf (0-5); URINE COLOR YELLOW (YELLW/STRAW)
--- NOTE | 2017-01-10 16:00 | PD ---
Physical Exam Date Seen by Provider: Jan 10, 2017 Time Seen by Provider: 15:54 Narrative 76-year-old female presents to the emergency department for evaluation of intermittent dizziness and gait abnormality that has been ongoing since she had knee surgery on November 08, 2016. She states that her knee is doing great. However, Sunday she can walk just fine. Other days, she cannot put 1 foot in front of the other. She also has been more emotional. She lives with her . She has no psychiatric history. She has a past medical history of hyperlipidemia, hypothyroidism, and a "spot on my brain".. Her physician recently put her on trazodone for anxiety. The patient states she sees Dr. Jin, neurologist, who follows her brain tumor. She denies any headache. No fevers or chills. No chest pain or shortness breath. No abdominal pain. No nausea or vomiting. She states that this morning she felt dizzy and walked to tear. However, when she gets the chair, she could no longer walk. She states that she called her primary care physician, Dr. Arguelles, who suggested she come to the emergency department. GENERAL: Well-developed well-nourished elderly female patient, afebrile. SKIN: Warm and dry. HEAD: Normocephalic. Atraumatic. EYES: No scleral icterus. No injection or drainage. NECK: Supple, trachea midline. No JVD or lymphadenopathy. CARDIOVASCULAR: Regular rate and rhythm without murmurs, gallops, or rubs. RESPIRATORY: Breath sounds equal bilaterally. No accessory muscle use. Lungs sounds are clear to auscultation. GASTROINTESTINAL: Abdomen soft, non-tender, nondistended. MUSCULOSKELETAL: No cyanosis, or edema. Bilateral upper and lower extremity strength 5/5. All extremities are neurovascularly intact. BACK: Nontender without obvious deformity. No CVA tenderness. NEUROLOGICAL: Awake and alert. Cranial nerves II through XII intact. Motor and sensory grossly within normal limits. Five out of 5 muscle strength in all muscle groups. Normal speech. Data Data Last Documented VS Vital Signs Date Time Temp Pulse Resp B/P Pulse Ox O2 Delivery O2 Flow Rate FiO2 01/10/17 13:31 97.8 86 20 151/77 97 Room Air Orders Electrocardiogram (01/10/17 14:32) Complete Blood Count With Diff (01/10/17 14:32) Comprehensive Metabolic Panel (01/10/17 14:32) Creatine Kinase (Cpk) (01/10/17 14:32) Prothrombin Time / Inr (Pt) (01/10/17 14:32) Act Partial Throm Time (Ptt) (01/10/17 14:32) Troponin I (01/10/17 14:32) Thyroid Stimulating Hormone (01/10/17 14:32) Urinalysis - C+S If Indicated (01/10/17 14:32) Ct Brain W/O Iv Contrast(Rout) (01/10/17 14:32) Chest, Single Ap (01/10/17 ) Orthostatic Vital Signs (01/10/17 15:53) Magnesium (Mg) (01/10/17 15:19) Labs Laboratory Tests Test 01/10/17 01/10/17 15:19 15:25 White Blood Count 6.3 TH/MM3 Red Blood Count 4.73 MIL/MM3 Hemoglobin 14.2 GM/DL Hematocrit 42.3 % Mean Corpuscular Volume 89.5 FL Mean Corpuscular Hemoglobin 30.1 PG Mean Corpuscular Hemoglobin 33.6 % Concent Red Cell Distribution Width 13.9 % Platelet Count 250 TH/MM3 Mean Platelet Volume 8.9 FL Neutrophils (%) (Auto) 56.0 % Lymphocytes (%) (Auto) 33.3 % Monocytes (%) (Auto) 8.4 % Eosinophils (%) (Auto) 1.7 % Basophils (%) (Auto) 0.6 % Neutrophils # (Auto) 3.5 TH/MM3 Lymphocytes # (Auto) 2.1 TH/MM3 Monocytes # (Auto) 0.5 TH/MM3 Eosinophils # (Auto) 0.1 TH/MM3 Basophils # (Auto) 0.0 TH/MM3 CBC Comment DIFF FINAL Differential Comment Prothrombin Time 11.0 SEC Prothromb Time International 1.0 RATIO Ratio Activated Partial 21.7 SEC Thromboplast Time Sodium Level 141 MEQ/L Potassium Level 4.5 MEQ/L Chloride Level 106 MEQ/L Carbon Dioxide Level 25.5 MEQ/L Anion Gap 10 MEQ/L Blood Urea Nitrogen 19 MG/DL Creatinine 0.87 MG/DL Estimat Glomerular Filtration 63 ML/MIN Rate Random Glucose 92 MG/DL Calcium Level 9.5 MG/DL Magnesium Level 2.1 MG/DL Total Bilirubin 0.6 MG/DL Aspartate Amino Transf 27 U/L (AST/SGOT) Alanine Aminotransferase 21 U/L (ALT/SGPT) Alkaline Phosphatase 79 U/L Total Creatine Kinase 98 U/L Troponin I LESS THAN 0.02 NG/ML Total Protein 7.9 GM/DL Albumin 4.5 GM/DL Thyroid Stimulating Hormone 2.120 uIU/ML 3rd Gen Urine Color YELLOW Urine Turbidity HAZY Urine pH 5.5 Urine Specific [place] 1.021 Urine Protein TRACE mg/dL Urine Glucose (UA) NEG mg/dL Urine Ketones 10 mg/dL Urine Occult Blood NEG Urine Nitrite NEG Urine Bilirubin NEG Urine Urobilinogen LESS THAN 2.0 MG/DL Urine Leukocyte Esterase NEG Urine RBC 1 /hpf Urine WBC 2 /hpf Urine Squamous Epithelial 5 /hpf Cells Urine Mucus FEW /lpf Urine Yeast (Budding) RARE Microscopic Urinalysis Comment CULT NOT INDICATED MDM Medical Record Reviewed: Yes Supervised Visit with FANNY: No Interpretation(s) Last Impressions Head CT 01/10/17 1432 Signed Impressions: Service Date/Time: Tuesday, January 10, 2017 14:53 - CONCLUSION: 1. No acute intracranial abnormality is identified. 2. Chronic changes include mild cerebral atrophy and periventricular white matter low attenuation characteristic of chronic microvascular ischemia. Demar Latham MD chest x-ray - CONCLUSION: 1. Cardiomegaly. No acute pulmonary disease. Differential Diagnosis Electrolyte abnormality versus cardiac arrhythmia versus ACS versus TIA versus CVA versus brain mass Narrative Course 76-year-old female presents to the emergency department stating that she has had dizziness and episodes where she cannot walk. She cannot put 1 foot in front of the other. EKG, CBC, CMP, CK, troponin, TSH, magnesium, PTT, PTT/INR, UA, orthostatic vital signs, CT of the brain, chest x-ray ordered and pending. EKG shows sinus rhythm, heart rate 83, no acute ST changes. CBC is unremarkable. CMP shows no acute abnormality. CK is 98. Troponin is less than 0.02. Magnesium is 2.1. TSH is 2.120. Coags showed no acute abnormality. UA shows no evidence of acute infection. CT of the brain shows no acute intracranial abnormality is identified; chronic changes include mild cerebral atrophy and periventricular white matter low attenuation characteristic of chronic microvascular ischemia. Chest x-ray shows cardiomegaly. No acute pulmonary disease. I discussed the results, the exam findings with my attending physician, Dr. Land, who agrees with plan and disposition. The patient is able ambulate in the emergency department without difficulty. She would like to go home. I instructed her to follow-up with Dr. Jin. She states she will do this. She is return for any acute worsening of symptoms. She is agreeable. The patient was discharged in stable condition with instructions, including return instructions and follow up instructions. Diagnosis Primary Impression: Generalized weakness Referrals: Loco Jin MD 1 day Patient Instructions: General Instructions, Weakness (ED) Additional Instruction: Follow-up with Dr. Jin. Return to the emergency department mainly for any acute worsening of symptoms. Med/Other Pt SpecificInfo: No Change to Meds Disposition: 01 DISCHARGE HOME Condition: Stable АлександрJhonatanLisset SEFERINO Jan 10, 2017 16:00
[2017-01-10 16:01] LABS: APTT (PATIENT) 21.7 SEC (24.3-30.1)
[2017-01-10 16:17] LABS: ALT (GPT) 21 U/L (10-53); ANION GAP 10 MEQ/L (5-15); AST (GOT) 27 U/L (15-37); BICARBONATE 25.5 MEQ/L (21.0-32.0); BLOOD UREA NITROGEN 19 MG/DL (7-18); CHLORIDE 106 MEQ/L (98-107); GLOMERULAR FILTRATION RATE 63 ML/MIN (>89); SODIUM (NA) 141 MEQ/L (136-145)
[2017-01-10 16:40] LABS: POTASSIUM 4.5 MEQ/L (3.5-5.1)
[2017-01-10 16:41] LABS: ALKALINE PHOSPHATASE 79 U/L (45-117); TOTAL BILIRUBIN ADULT 0.6 MG/DL (0.2-1.0)
[2017-01-10 16:43] LABS: CREATINE KINASE 98 U/L (26-192)
--- NOTE | 2017-01-10 17:10 | RADRPT ---
EXAM DATE/TIME: 01/10/2017 16:29 [facility] COMPARISON: No previous studies available for comparison. INDICATIONS : Weakness and dizziness. MEDICAL HISTORY : None. SURGICAL HISTORY : total knee replacement ENCOUNTER: Initial ACUITY: 1 day PAIN SCORE: 6/10 LOCATION: Bilateral upper chest FINDINGS: The cardiac silhouette is enlarged in transverse diameter. The lungs are free of acute parenchymal op acity. No effusions are identified. The aortic knob is prominent with tortuosity of the descending th oracic aorta. CONCLUSION: 1. Cardiomegaly. No acute pulmonary disease. Daquan Figueredo MD on January 10, 2017 at 17:08 Board Certified Radiologist. This report was verified electronically.
[2017-01-10 17:15] LABS: MAGNESIUM 2.1 MG/DL (1.5-2.5)
--- NOTE | 2017-01-11 10:49 | EKG ---
Date Performed: 01/10/2017 Time Performed: 15:13:30 PTAGE: 76 years EKG: Sinus rhythm LOW QRS VOLTAGE IN PRECORDIAL LEADS BORDERLINE ECG PREVIOUS TRACING : 10/31/2016 10.16 Compared to prior tracing no significant change DOCTOR: Олег Lacy Interpretating Date/Time 01/11/2017 10:46:59
== END 2017-01-10 23:58 | disposition home or self-care (01) ==
LOC: NEPE 13:27
DX: R53.1 Weakness (principal); R42 Dizziness and giddiness; R26.9 Unspecified abnormalities of gait and mobility; R45.86 Emotional lability; R94.31 Abnormal electrocardiogram [ECG] [EKG]; E03.9 Hypothyroidism, unspecified; E78.5 Hyperlipidemia, unspecified; D49.6 Neoplasm of unspecified behavior of brain; Z87.39 Personal history of other diseases of the musculoskeletal system and connective tissue; Z85.828 Personal history of other malignant neoplasm of skin; Z86.73 Personal history of transient ischemic attack (TIA), and cerebral infarction without residual deficits; Z87.19 Personal history of other diseases of the digestive system
CPT/HCPCS: 70450; 71010; 80053; 81001; 82550; 83735; 84443; 84484; 85025; 85610; 85730; 93005